=== PATIENT | male | born 1975 | race African-American/Black ===

== ENCOUNTER 2017-02-26 15:34 | Emergency (ER) | payer SELFPAY, BC ==
[2017-02-26 15:58] LABS: ADD MAN DIFF? NO
[2017-02-26] MEDS ORDERED: IV RINGERS,LACTATED 1000ML 1,000 ML IV (16:00)
[2017-02-26 16:01] LABS: BASO # 0.1 x10^3/uL (0.0-0.2); BASO % 1 % (0-3); EOS % 0 % (0-3); HEMATOCRIT 44.3 % (39.0-53.0); HEMOGLOBIN 15.3 g/dL (13.0-17.5); LYMPH # 1.9 x10^3/uL (1.0-4.8); LYMPH % 25 % (24-48); MEAN CORPUSCULAR HEMOGLOBIN 32 pg (25-35); MEAN CORPUSCULAR HGB CONC 35 g/dL (31-37); MEAN CORPUSCULAR VOLUME 94 fL (79-100); MONO # 0.5 x10^3/uL (0.0-1.1); MONO % 7 % (0-9); NEUT # 5.2 x10^3uL (1.8-7.7); NEUT % 68 % (31-73); PLATELET COUNT 250 x10^3/uL (140-400); RED BLOOD COUNT 4.73 x10^6/uL (4.30-5.70); RED CELL DISTRIBUTION WIDTH 13.7 % (11.5-14.5); WHITE BLOOD COUNT 7.7 x10^3/uL (4.0-11.0)
[2017-02-26] MEDS: ASPIRIN CHEWABLE 81 MG TABLET. PO (16:15)
[2017-02-26] MEDS: METOPROLOL TARTRATE 5 MG/5 ML VIAL. IVP ×2 (16:17→18:01)
[2017-02-26] MEDS: ONDANSETRON PF 4 MG/2 ML VIAL. IV (16:18)
[2017-02-26] MEDS: IV NORMAL SALINE 1000ML BAG 1,000 ML IV (16:18)
[2017-02-26] MEDS: MORPHINE SULFATE 4 MG/ML DISP.SYRIN. IV/SQ ×3 (16:18→17:34)
[2017-02-26 16:21] LABS: PROTHROMBIN TIME PATIENT 12.8 SEC (11.7-14.0)
[2017-02-26 16:27] LABS: ANION GAP 14 (6-14); BLOOD UREA NITROGEN 11 mg/dL (8-26); BUN/CREATININE RATIO 12 (6-20); CALCIUM 10.2 mg/dL (8.5-10.1); CARBON DIOXIDE 26 mmol/L (21-32); CHLORIDE 101 mmol/L (98-107); CREATININE 0.9 mg/dL (0.7-1.3); GFR 113.7; GLUCOSE 119 mg/dL (70-99); POTASSIUM 3.6 mmol/L (3.5-5.1); SODIUM 141 mmol/L (136-145)
[2017-02-26 16:32] LABS: ALBUMIN 4.3 g/dL (3.4-5.0); ALBUMIN/GLOBULIN RATIO 1.2 (1.0-1.7); ALK PHOS 74 U/L (46-116); ALT (SGPT) 47 U/L (16-63); AST (SGOT) 44 U/L (15-37); LIPASE 117 U/L (73-393); TOTAL BILIRUBIN 0.8 mg/dL (0.2-1.0); TOTAL PROTEIN 7.8 g/dL (6.4-8.2)
[2017-02-26 16:38] LABS: NT-PRO BNP 147 pg/mL (0-124); TROPONINI < 0.017 ng/mL (0.000-0.055)
[2017-02-26 16:50] LABS: BARBITURATES NEG (NEG); BENZODIAZEPINES NEG (NEG); CANNABINOIDS POS (NEG); COCAINE NEG (NEG); METHADONE NEG (NEG); OPIATES NEG (NEG); PHENCYCLIDINE POS (NEG)
[2017-02-26 16:51] LABS: AMPHETAMINE/METHAMPHETAMINE NEG (NEG); BILIRUBIN,URINE SMALL (NEG); CLARITY,URINE CLEAR; COLOR,URINE AMBER; ETHANOL, URINE NEG (NEG); GLUCOSE,URINE NEGATIVE (NEG); NITRITE,URINE NEGATIVE (NEG); PROTEIN,URINE 30 mg/dL (NEG-TRACE); UROBILINOGEN,URINE 0.2 mg/dL (0.2 mg/dL)
[2017-02-26 17:07] LABS: RBC,URINE 0 /HPF (0-2)
[2017-02-26 17:08] LABS: BACTERIA,URINE 0 /HPF (0-FEW); SQUAMOUS EPITHELIAL CELL,UR OCC /LPF
[2017-02-26] MEDS ORDERED: METOPROLOL TARTRATE 5 MG/5 ML VIAL. IVP (18:00)
[2017-02-26 18:08] LABS: D-DIMER 0.38 ug/mlFEU (0.00-0.50)
[2017-02-26] MEDS: hydrALAZINE 20 MG/ML VIAL. IVP (20:03)
[2017-02-26] MEDS: KETOROLAC 30 MG/ML INJ. IV (20:04)
== END 2017-02-26 20:35 | disposition home or self-care (01) ==
LOC: ER 15:34
DX: R07.89 Other chest pain (principal); F41.9 Anxiety disorder, unspecified; F16.10 Hallucinogen abuse, uncomplicated; F17.210 Nicotine dependence, cigarettes, uncomplicated; I10 Essential (primary) hypertension
CPT/HCPCS: 36415; 71046; 80053; 80307; 81001; 83690; 83880; 84484; 85025; 85379; 85610; 93005; 96361; 96374; 96375; 96376; 99285-25; J0360; J1885; J2060; J2270; J2405; J3490; J7030